=== PATIENT | female | born 1990 | race African-American/Black ===

== ENCOUNTER 2021-01-06 18:49 | Emergency (ER) | payer OTHER ==
[2021-01-06 19:45] LABS: BASOPHIL 0.4 % (0-2); HCT 26.3 % (37.0-47.0); HGB 8.4 g/dl (12.5-16.0); LYMPHOCYTE 20.7 % (15-48); MCH 29.5 pg (25.0-31.0); MCHC 31.9 g/dL (32.0-36.0); MCV 92.3 fL (78.0-100.0); MONOCYTE 8.7 % (0-12); MPV 10.5 fL (6.0-9.5); NEUTROPHIL 64.3 % (41-80); NRBC 0.5; PLT 265 K/uL (150-400); RBC 2.85 M/uL (4.20-5.40); RDW 14.1 % (11.5-14.0); WBC 7.9 K/uL (4.0-10.5)
[2021-01-06 20:00] LABS: ALBUMIN 2.5 g/dL (3.4-5.0); BILIRUBIN - TOTAL 0.3 mg/dL (0.2-1.0); BUN/CREAT RATIO (CALC) 9.5 RATIO; CREATININE 0.74 mg/dL (0.51-0.95); GLOBULIN (CALCULATION) 4.4 g/dL; POTASSIUM 3.6 mmol/L (3.5-5.1); TOTAL PROTEIN 6.9 g/dL (6.4-8.2)
[2021-01-06 20:39] LABS: BILIRUBIN NEGATIVE (NEGATIVE); BLOOD 3+ Ery/uL (NEGATIVE); CLARITY CLEAR (CLEAR); COLOR YELLOW (YELLOW); GLUCOSE (U) NORMAL (NORMAL); LEUKOCYTES TRACE Leu/uL (NEGATIVE); NITRITE NEGATIVE (NEGATIVE); PROTEIN 1+ mg/dL (NEGATIVE); SPECIFIC GRAVITY >=1.030 (1.001-1.030); UROBILINOGEN 0.2 mg/dL (0.2-1.0)
[2021-01-06 20:44] LABS: URINARY RBC RARE; URINARY WBC 20-50
[2021-01-06 20:45] LABS: AMORPHOUS URATES CRYSTALS TRACE; BACTERIA 3+; MUCOUS MODERATE
== END 2021-01-06 21:05 | disposition home or self-care (01) ==
LOC: FER 18:49
PROVIDERS: Emergency Medicine
DX: F41.9 Anxiety disorder, unspecified (principal)
CPT/HCPCS: 36415; 71045; 80053; 81001; 84484; 85025; 87088; 93005; J2060